=== PATIENT | female | born 1990 ===

== ENCOUNTER 2018-09-11 10:43 | Outpatient (CLI) | payer MEDICAID | END 2018-09-11 10:44 | disposition home or self-care (01) | LOC: C.USIC 10:43 | DX: R10.2 Pelvic and perineal pain (principal) ==

== ENCOUNTER 2018-09-25 16:47 | Outpatient (CLI) | payer MEDICAID | END 2018-09-25 16:48 | disposition home or self-care (01) | LOC: C.CTH 16:48 ==

== ENCOUNTER 2018-10-02 15:28 | Emergency (ER) | payer MEDICAID | END 2018-10-02 18:20 | disposition home or self-care (01) | LOC: C.ER 15:28 ==